=== PATIENT | male | born 1960 | race Caucasian/White ===

== ENCOUNTER → 2020-12-02 | Outpatient (CLI) | payer OTHER ==
[2020-12-03 16:12] LABS: LYME IGG/IGM AB <0.91 ISR (0.00-0.90)
== END ==
LOC: LAB 11:37
PROVIDERS: Psychiatry & Neurology Neurology
DX: E11.42 Type 2 diabetes mellitus with diabetic polyneuropathy (principal); R20.2 Paresthesia of skin; R20.0 Anesthesia of skin; R29.6 Repeated falls; R26.81 Unsteadiness on feet; M15.9 Polyosteoarthritis, unspecified
CPT/HCPCS: 36415; 82607; 82746; 83921; 84443; 86618